=== PATIENT | male | born 1960 | race Hispanic/Latino ===

== ENCOUNTER 2020-07-23 18:50 | Emergency (ER) | payer BC, OTHER ==
--- NOTE | 2020-07-23 21:00 | ER ---
Nurse's Notes [facility] Name: Destin Peraza Age: 59 yrs Sex: Male : 1960 Arrival Date: 07/23/2020 Time: 18:52 Bed 17 Private MD: Diagnosis: Edema, unspecified Presentation: 07/23 19:08 Chief complaint: Patient states: lesa feet swelling x 3 days. Denies SOB out of the [facility] ordinary. Coronavirus screen: Client denies travel out of the [place] in the last 14 days. At this time, the client does not indicate any symptoms associated with coronavirus-19. Ebola Screen: Patient negative for fever greater than or equal to 101.5 degrees Fahrenheit, and additional compatible Ebola Virus Disease symptoms Patient denies exposure to infectious person. Patient denies travel to an Ebola-affected area in the 21 days before illness onset. No symptoms or risks identified at this time. Initial Sepsis Screen: Does the patient meet any 2 criteria? No. Patient's initial sepsis screen is negative. Does the patient have a suspected source of infection? No. Patient's initial sepsis screen is negative. Risk Assessment: Do you want to hurt yourself or someone else? Patient reports no desire to harm self or others. Onset of symptoms was July 23, 2020. 19:08 Method Of Arrival: Ambulatory ca1 19:08 Acuity: CINDY 3 ca1 Historical: - Allergies: 19:11 No Known Allergies; ca1 - PMHx: 19:11 CVA; Hypertension; Hyperlipidemia; Diabetes - NIDDM; BPH; ca1 - PSHx: 19:11 None; ca1 - Immunization history:: Flu vaccine is up to date. - Social history:: Smoking status: Patient/guardian denies using tobacco, the patient reports quitting approximately 2 years ago. Screenin:20 Abuse screen: Denies threats or abuse. Nutritional screening: No deficits noted. jb4 Tuberculosis screening: No symptoms or risk factors identified. Fall Risk None identified. Assessment: 19:20 General: Appears in no apparent distress. comfortable, Behavior is calm, cooperative, jb4 appropriate for age. Pain: Denies pain. Neuro: Level of Consciousness is awake, alert, obeys commands, Oriented to person, place, time, situation. Cardiovascular: Patient's skin is warm and dry. Edema is 1+ to left midcalf and right midcalf is 2+ to left ankle and right ankle pitting to left midcalf, left ankle, right midcalf and right ankle. Respiratory: Airway is patent Respiratory effort is even, unlabored, Respiratory pattern is regular, symmetrical. GI: No signs and/or symptoms were reported involving the gastrointestinal system. : No signs and/or symptoms were reported regarding the genitourinary system. EENT: No signs and/or symptoms were reported regarding the EENT system. Derm: Skin is intact, Skin is pink, warm \T\ dry. Musculoskeletal: Circulation, motion, and sensation intact. Range of motion: intact in all extremities, Swelling present in right foot, left foot, right leg and left leg. 20:12 Reassessment: Patient appears in no apparent distress at this time. Patient and/or jb4 family updated on plan of care and expected duration. Pain level reassessed. Patient is alert, oriented x 3, equal unlabored respirations, skin warm/dry/pink. 21:21 Reassessment: Patient appears in no apparent distress at this time. Patient and/or jb4 family updated on plan of care and expected duration. Pain level reassessed. Patient is alert, oriented x 3, equal unlabored respirations, skin warm/dry/pink. Vital Signs: 19:08 BP 173 / 113; Pulse 111; Resp 20; Temp 97.4(TE); Pulse Ox 97% on R/A; Weight 104.33 kg ca1 (R); Height 5 ft. 9 in. (175.26 cm); Pain 0/10; 20:00 BP 160 / 108; Pulse 91; Resp 16; Pulse Ox 96% on R/A; jb4 21:00 BP 152 / 109; Pulse 88; Resp 16; Pulse Ox 99% on R/A; jb4 19:08 Body Mass Index 33.96 (104.33 kg, 175.26 cm) ca1 ED Course: 18:52 Patient arrived in ED. ds1 19:10 Triage completed. ca1 19:11 Arm band placed on right wrist. ca1 19:13 Christiano Dahl PA is PHCP. jmm 19:13 Duran Mancia MD is Attending Physician. [facility] 19:17 Jose Ramos RN is Primary Nurse. jb4 19:20 Patient has correct armband on for positive identification. Bed in low position. Call jb4 light in reach. Side rails up X 1. Pulse ox on. NIBP on. 20:55 US Extremity Venous W Compression Lesa In Process Unspecified. EDMS 21:22 No provider procedures requiring assistance completed. Patient did not have IV access jb4 during this emergency room visit. Administered Medications: No medications were administered Outcome: 20:59 Discharge ordered by . avery 21:22 Discharged to home ambulatory. jb4 21:22 Condition: stable 21:22 Discharge instructions given to patient, Instructed on discharge instructions, follow up and referral plans. Demonstrated understanding of instructions, follow-up care. 21:22 Patient left the ED. jb4 Signatures: Dispatcher [employer] EDDC Christiano Dahl PA PA Noemy Rodriguez ds1 Jose Ramos, RN RN jb4 Maria E Cruz RN RN ca1
--- NOTE | 2020-07-23 21:00 | EDPHYS ---
Physician Documentation [facility] Name: Destin Peraza Age: 59 yrs Sex: Male : 1960 Arrival Date: 07/23/2020 Time: 18:52 Bed 17 Private MD: ADY Physician Duran Mancia HPI: 07/23 19:23 This 59 yrs old Male presents to ER via Ambulatory with complaints of Feet jmm Swelling. 19:23 The patient presents with swelling. Onset: The symptoms/episode began/occurred 3 day(s) jmm ago. Modifying factors: The symptoms are alleviated by nothing. the symptoms are aggravated by nothing. Associated signs and symptoms: Pertinent negatives fever, chest pain, shortness of breath. The patient has not experienced similar symptoms in the past. Patient denies history of CHF, denies diuretic use. Historical: - Allergies: 19:11 No Known Allergies; ca1 - PMHx: 19:11 CVA; Hypertension; Hyperlipidemia; Diabetes - NIDDM; BPH; ca1 - PSHx: 19:11 None; ca1 - Immunization history:: Flu vaccine is up to date. - Social history:: Smoking status: Patient/guardian denies using tobacco, the patient reports quitting approximately 2 years ago. ROS: 19:23 Constitutional: Negative for fever, chills, and weight loss, Cardiovascular: Negative jmm for chest pain, palpitations, and edema, Respiratory: Negative for shortness of breath, cough, wheezing, and pleuritic chest pain. 19:23 MS/extremity: Positive for swelling. 19:23 All other systems are negative. Exam: 19:23 Constitutional: This is a well developed, well nourished patient who is awake, alert, jmm and in no acute distress. Head/Face: atraumatic. Eyes: EOMI, no conjunctival erythema appreciated ENT: Moist Mucus Membranes Neck: Trachea midline, Supple Chest/axilla: Normal chest wall appearance and motion. Cardiovascular: Regular rate and rhythm. No edema appreciated Respiratory: Normal respirations, no respiratory distress appreciated Abdomen/GI: Non distended, soft Back: Normal ROM Skin: General appearance color normal 19:23 Musculoskeletal/extremity: ROM: intact in all extremities, edema noted bilaterally, full dorsalis pulse bilaterally. 19:23 Skin: Appearance: Color: normal in color. 19:23 Neuro: Orientation: is normal, Mentation: is normal, Memory: is normal. 19:23 Psych: Behavior/mood is pleasant, cooperative. Vital Signs: 19:08 BP 173 / 113; Pulse 111; Resp 20; Temp 97.4(TE); Pulse Ox 97% on R/A; Weight 104.33 kg ca1 (R); Height 5 ft. 9 in. (175.26 cm); Pain 0/10; 20:00 BP 160 / 108; Pulse 91; Resp 16; Pulse Ox 96% on R/A; jb4 21:00 BP 152 / 109; Pulse 88; Resp 16; Pulse Ox 99% on R/A; jb4 19:08 Body Mass Index 33.96 (104.33 kg, 175.26 cm) ca1 MDM: 19:23 Patient medically screened. debora 20:58 Data reviewed: vital signs, nurses notes. Counseling: I had a detailed discussion with avery the patient and/or guardian regarding: the historical points, exam findings, and any diagnostic results supporting the discharge/admit diagnosis, radiology results, the need for outpatient follow up, to return to the emergency department if symptoms worsen or persist or if there are any questions or concerns that arise at home. ED course: Patient is alert and non toxic in appearance in the ED. I do not suspect cellulitis, DVT, CHF. Advised to follow up with pcp and otherwise given strict return precautions. Patient understood and agrees with the plan of care. . 07/23 19:24 Order name: US Extremity Venous W Compression Stephen avery Administered Medications: No medications were administered Disposition: 07/24 06:42 Co-signature as Attending Physician, Duran Mancia MD I agree with the assessment and macrina plan of care. Disposition: 07/23/20 20:59 Discharged to Home. Impression: Edema, unspecified. - Condition is Stable. - Discharge Instructions: Peripheral Edema. - Medication Reconciliation Form, Thank You Letter, Antibiotic Education, Prescription Opioid Use form. - Follow up: Private Physician; When: 2 - 3 days; Reason: Recheck today's complaints, Continuance of care, Re-evaluation by your physician. Signatures: Dispatcher [employer] Duran Mcbride MD MD cha Mickail, Joel, PA PA jmm Bryson, James, RN RN jb Maria E Cruz RN RN ca1 Corrections: (The following items were deleted from the chart) 07/23 21:22 20:59 07/23/2020 20:59 Discharged to Home. Impression: Edema, unspecified. Condition is jb4 Stable. Forms are Medication Reconciliation Form, Thank You Letter, Antibiotic Education, Prescription Opioid Use. Follow up: Private Physician; When: 2 - 3 days; Reason: Recheck today's complaints, Continuance of care, Re-evaluation by your physician. avery
[2020-07-23 21:28] VITALS: TEMP 97.4
[2020-07-23 21:30] VITALS: BP 152/109; O2SAT 99
--- NOTE | 2020-07-23 21:30 | RAD REPORT ---
EXAM DESCRIPTION: US - Extrem Venous W Compress Stephen - 07/23/2020 8:55 pm CLINICAL HISTORY: SWELLING COMPARISON: None. TECHNIQUE: Real-time sonographic evaluation of the bilateral lower extremity common femoral, superfi cial femoral, popliteal and posterior tibial veins was performed. FINDINGS: Normal compressibility, flow augmentation, phasic flow and spontaneous flow are identified in the left and right lower extremity common femoral, superficial femoral, popliteal and posterior t ibial veins. No intraluminal filling defects seen. IMPRESSION: No DVT in either lower extremity.
== END 2020-07-23 21:22 | disposition home or self-care (01) ==
LOC: ER 18:50
DX: R22.43 Localized swelling, mass and lump, lower limb, bilateral (principal); I10 Essential (primary) hypertension; Z87.891 Personal history of nicotine dependence; E78.5 Hyperlipidemia, unspecified; Z86.73 Personal history of transient ischemic attack (TIA), and cerebral infarction without residual deficits; E11.9 Type 2 diabetes mellitus without complications; N40.0 Benign prostatic hyperplasia without lower urinary tract symptoms
CPT/HCPCS: 93970; 99283